=== PATIENT | female | born 1935 | race African-American/Black ===

== ENCOUNTER 2024-01-03 12:51 | Emergency (ER) | payer BC, MEDICARE, OTHER ==
[~2024-01-03] VITALS: Ht 152.4 cm; Wt 50.0 kg
[2024-01-03 12:54] VITALS: O2SAT 100
[2024-01-03] MEDS: SODIUM CHLORIDE 0.9% 1,000 ML IV ONE (13:52)
[2024-01-03] MEDS: MIDAZOLAM HCL 2 MG/2 ML VIAL IV ONE (14:00)
[2024-01-03 14:38] LABS: BASOPHILS % 1.2 % (0.0-2.0); HEMATOCRIT. 35.8 % (36.0-48.0); HEMOGLOBIN. 11.7 g/dL (12.0-16.0); MEAN CORPUSCULAR HEMOGLOBIN 29.1 pg (28.0-32.0); MEAN CORPUSCULAR HGB CONC 32.7 g/dL (31.0-37.0); MEAN PLATELET VOLUME 9.3 fl (7.4-10.4); MONOCYTES % 11.9 % (2.0-8.0); NEUTROPHILS % 68.9 % (40.0-76.0); PLATELET 245 x1000/uL (130-400); RED BLOOD CELL COUNT 4.02 mill/uL (4.2-5.4); RED CELL DISTRIBUTION WIDTH 14.8 % (11.6-14.6); WHITE BLOOD COUNT 3.6 x1000/uL (4.5-11.0)
[2024-01-03 15:03] LABS: PARTIAL THROMBOPLASTIN TIME 51.8 sec (23.4-31.0); PROTHROMBIN TIME 56.4 sec (9.6-11.0)
[2024-01-03 15:08] VITALS: TEMP 97.5
[2024-01-03] MEDS: SODIUM CHLORIDE 0.9% 1000ML BAG (SEPSIS BOLUS) IV ONE (15:14)
[2024-01-03] MEDS: CEFTRIAXONE 1GM/50ML 50 ML IV ONE (15:15)
[2024-01-03] MEDS: AZITHROMYCIN 500MG/250ML 250 ML IV ONE (15:30)
[2024-01-03 15:32] LABS: INR 5.7
[2024-01-03 16:06] LABS: ALANINE AMINOTRANSFERASE 26 IU/L (10-49); ALBUMIN 4.2 g/dL (3.2-4.8); ASPARTATE AMINOTRANSFERASE 30 IU/L (<34); BILIRUBIN TOTAL 0.4 mg/dL (0.1-1.0); CALCIUM 9.2 mg/dL (8.7-10.4); CARBON DIOXIDE 28 mEq/L (21-32); CHLORIDE 105 mEq/L (98-107); CREATININE 0.8 mg/dL (0.6-1.0); GLUCOSE 97 mg/dL (70-105); POTASSIUM 3.7 mEq/L (3.5-5.1); PROTEIN TOTAL 6.9 g/dL (6.0-8.3); SODIUM 140 mEq/L (136-145); TROPONIN I HIGH SENSITIVITY 5 ng/L (3.0-34); UREA NITROGEN BLOOD 20 mg/dL (9-23)
[2024-01-03 17:58] LABS: CLARITY URINE CLOUDY (CLEAR); COLOR URINE YELLOW (YELLOW); GLUCOSE URINE NEGATIVE (NEGATIVE); KETONES URINE NEGATIVE (NEGATIVE); LEUKOCYTE ESTERASE URINE TRACE (NEGATIVE); NITRITE URINE NEGATIVE (NEGATIVE); OCCULT BLOOD URINE NEGATIVE (NEGATIVE); PH URINE 8.5 (4.5-8.0); PROTEIN URINE NEGATIVE (NEGATIVE); SPECIFIC GRAVITY URINE 1.008 (1.005-1.030); UROBILINOGEN URINE 0.2 E.U./dL (0.2-1.0)
[2024-01-03 18:29] LABS: BACTERIA URINE 4+; RBC URINE NONE SEEN /hpf (0-2); SQUAMOUS EPITHELIAL CELL URINE NONE SEEN /lpf (RARE/1+); WBC URINE 0-2 /hpf (0-2); YEAST URINE NONE SEEN
[2024-01-03 20:00] VITALS: BP 145/64; PULSE 69; RESP 18
== END 2024-01-03 17:53 | disposition short-term general hospital (02) ==
LOC: ER 12:51 → CANBEDREQ 17:13 → ER 17:53
DX: G25.0 Essential tremor (principal); R53.1 Weakness; I48.91 Unspecified atrial fibrillation; E11.9 Type 2 diabetes mellitus without complications; I10 Essential (primary) hypertension; Z20.822 Contact with and (suspected) exposure to COVID-19
CPT/HCPCS: 99285; 70450; 96365; 71045; 96367; 96361; 96366; 96375; 87426; 80053; 81003; 83880; 83605; 83690; 83735; 85025; 85610; 85730; 87086; 87186; 84484; 87077; 36415; 74176; 93005; J0456; J0696; J2250; J7030